=== PATIENT | female | born 1935 | race Hispanic/Latino ===

== ENCOUNTER → 2018-01-02 | Day surgery (SDC) | payer OTHER, MEDICARE ==
[~2018-01-02] MED LIST: ISOVUE-300 100 ML VIAL IV ONE; LIDOCAINE HCL 1% MDV 50ML VIAL ONE
== END ==
LOC: EDBD → DAH 10:43
PROVIDERS: ATTEND Family Medicine
DX: Z43.4 Encounter for attention to other artificial openings of digestive tract (principal); Z88.0 Allergy status to penicillin; F41.9 Anxiety disorder, unspecified; Z90.49 Acquired absence of other specified parts of digestive tract; Z85.028 Personal history of other malignant neoplasm of stomach
CPT/HCPCS: 49441; 94002; C1729; C1769; J3490; Q9967

== ENCOUNTER → 2018-02-26 | Day surgery (SDC) | payer MEDICARE, OTHER ==
[~2018-02-26] MED LIST changes: +LIDOCAINE HCL 1% 20 ML VIAL ONE; -LIDOCAINE HCL 1% MDV 50ML VIAL ONE
== END ==
LOC: CLH 12:09
PROVIDERS: ATTEND Family Medicine
DX: K94.13 Enterostomy malfunction (principal); F41.9 Anxiety disorder, unspecified; Z90.49 Acquired absence of other specified parts of digestive tract; J69.0 Pneumonitis due to inhalation of food and vomit; I50.9 Heart failure, unspecified
CPT/HCPCS: 49451; 94002; C1729; C1769; Q9967